=== PATIENT | female | born 1985 | race Two or more races ===

== ENCOUNTER 2022-09-18 10:56 | Inpatient (IN) | payer OTHER ==
[2022-09-18 12:26] LABS: BASO % 0.4 % (0-2.0); EOS % 1.2 % (0-4.5); HEMATOCRIT 36.5 % (32.4-45.2); LYMPH % 20.6 % (8-40); MCH 27.6 pg (25.7-33.7); MCHC 32.8 g/dl (32.0-36.0); MEAN CELL VOLUME 84.1 fl (80-96); MEAN PLT VOLUME 8.6 fl (7.5-11.1); MONO % 6.3 % (3.8-10.2); NEUT % 71.5 % (42.8-82.8); PLATELET COUNT 227 10^3/uL (134-434); RBC 4.34 M/mm3 (3.60-5.2); RDW 15.1 % (11.6-15.6); WHITE BLOOD COUNT 8.3 K/mm3 (4.0-10.0)
[2022-09-18 12:32] LABS: INR 0.97 (0.83-1.09); PROTHROMBIN TIME (PATIENT) 11.2 SEC (9.7-13.0)
[2022-09-18 12:35] LABS: ACTIVATED PTT 29.2 SECONDS (25.2-36.5)
[2022-09-18 13:13] LABS: CALCIUM 9.9 mg/dL (8.5-10.1)
[2022-09-18 13:14] LABS: ALBUMIN 2.5 g/dl (3.4-5.0); BLOOD UREA NITROGEN 11.9 mg/dL (7-18)
[2022-09-18 13:17] LABS: CREATININE 0.9 mg/dL (0.55-1.3)
[2022-09-18 13:18] LABS: BILIRUBIN,TOTAL 0.3 mg/dL (0.2-1); TOT PROT 6.5 g/dl (6.4-8.2)
[2022-09-19] MEDS ORDERED: CITRIC ACID/SODIUM CITRATE 30 ML UNIT-DOSE CUP PO ONE (06:45)
[2022-09-19] MEDS ORDERED: ELECTROLYTE-148 SOLN 500 ML IV ONE (06:45)
[2022-09-19 06:48] VITALS: BMI 30.3
[2022-09-19] MEDS ORDERED: ELECTROLYTE-148 SOLN 1,000 ML IV SCH (07:15)
[2022-09-19] MEDS ORDERED: ACETAMINOPHEN 325 MG TABLET (FP) PO PRN ×2 (08:00→09:49)
[2022-09-19] MEDS ORDERED: ONDANSETRON 4 MG/2 ML VIAL IVPUSH PRN (08:00)
[2022-09-19] MEDS ORDERED: morphine SULFATE/PF 1 MG/2 ML (2cc Syringe - QUVA) EP ONE (08:00)
[2022-09-19] MEDS ORDERED: IBUPROFEN 600 MG TABLET (FP) PO PRN (08:00)
[2022-09-19] MEDS ORDERED: morphine SULFATE (PF) 1 MG/2 ML SYRINGE ONE (08:10)
[2022-09-19] MEDS ORDERED: SODIUM CHLORIDE 0.9% P/F 10 ML VIAL IJ ONE (08:11)
[2022-09-19] MEDS ORDERED: ceFAZolin SODIUM 1 GM VIAL ONE (08:11)
[2022-09-19] MEDS ORDERED: OXYTOCIN 10 UNITS/ML VIAL ONE ×2 (08:52→09:27)
[2022-09-19] MEDS ORDERED: ONDANSETRON 4 MG/2 ML VIAL ONE (09:27)
[2022-09-19 09:47] LABS: CORD BASE EXCESS -4.1 mmol/L (0-2); CORD HCO3 22.3 mmHg (20-29); CORD PCO2 45.5 mmHg (30-78); CORD pH 7.308 (7.14-7.44)
[2022-09-19 09:49] LABS: CORD HCO3 24.7 mmHg (20-29); CORD PCO2 61.1 mmHg (30-78); CORD pH 7.224 (7.14-7.44)
[2022-09-19] MEDS ORDERED: METHYLERGONOVINE MALEATE 0.2 MG/1 ML AMP IM PRN (09:49)
[2022-09-19] MEDS ORDERED: ceFAZolin 2 GRAM PREMIX BAG IVPB SCH (10:00)
[2022-09-19] MEDS ORDERED: OXYTOCIN 20 UNITS in 0.9% NS 20 UNIT/1,000 ML INFUS.BAG IV ONE (11:06)
[2022-09-19] MEDS: OXYTOCIN 20 UNITS in 0.9% NS 20 UNIT/1,000 ML INFUS.BAG IV SCH ×2 (11:21→16:35)
[2022-09-19] MEDS: INSULIN SLIDING SCALE (NOVOLOG) 1 VIAL SQ SCH ×3 (12:17→22:18)
[2022-09-19] MEDS: IBUPROFEN 800 MG/8 ML IJ IVPB PRN (17:07)
[2022-09-19] MEDS: CEFAZOLIN SODIUM 2 GM in DEXTROSE 5%-WATER - 50 ML IVPB SCH ×2 (18:27→18:29)
[2022-09-19] MEDS ORDERED: oxyCODONE HCL 5 MG TABLET PO PRN ×2 (21:49)
[2022-09-20] MEDS: CEFAZOLIN SODIUM 2 GM in DEXTROSE 5%-WATER - 50 ML IVPB SCH (02:26)
[2022-09-20] MEDS: IBUPROFEN 600 MG TABLET (FP) PO PRN ×2 (02:26→13:51)
[2022-09-20] MEDS: IBUPROFEN 800 MG/8 ML IJ IVPB PRN (06:10)
[2022-09-20] MEDS: INSULIN SLIDING SCALE (NOVOLOG) 1 VIAL SQ SCH ×4 (06:21→21:38)
[2022-09-20 09:07] LABS: BASO % 0.3 % (0-2.0); EOS % 0.3 % (0-4.5); HEMATOCRIT 32.6 % (32.4-45.2); HEMOGLOBIN 10.6 GM/dL (10.7-15.3); LYMPH % 16.9 % (8-40); MCH 27.4 pg (25.7-33.7); MCHC 32.6 g/dl (32.0-36.0); MEAN CELL VOLUME 84.1 fl (80-96); MEAN PLT VOLUME 8.2 fl (7.5-11.1); MONO % 6.5 % (3.8-10.2); PLATELET COUNT 210 10^3/uL (134-434); RBC 3.87 M/mm3 (3.60-5.2); RDW 15.2 % (11.6-15.6); WHITE BLOOD COUNT 11.7 K/mm3 (4.0-10.0)
[2022-09-20 09:30] LABS: BLOOD UREA NITROGEN 10.7 mg/dL (7-18)
[2022-09-20 09:35] LABS: BILIRUBIN,TOTAL 0.3 mg/dL (0.2-1)
[2022-09-20 09:37] LABS: ALBUMIN 1.5 g/dl (3.4-5.0); CALCIUM 7.9 mg/dL (8.5-10.1); TOT PROT 4.2 g/dl (6.4-8.2)
[2022-09-20] MEDS ORDERED: BISACODYL 10 MG SUPP.RECT RC PRN (09:49)
[2022-09-20] MEDS: SIMETHICONE 80 MG TAB.CHEW (FP) PO PRN ×2 (10:04→13:51)
[2022-09-20] MEDS: ENOXAPARIN NA (PORCINE) 40 MG/0.4 ML DISP.SYRIN SQ SCH (10:04)
[2022-09-20] MEDS: LEVOTHYROXINE NA 150 MCG TABLET PO SCH (11:45)
[2022-09-20] MEDS: CEFAZOLIN SODIUM 2 GM VIAL IVPB SCH ×2 (15:58→21:40)
[2022-09-21] MEDS: CEFAZOLIN SODIUM 2 GM VIAL IVPB SCH ×2 (06:29→15:00)
[2022-09-21] MEDS: INSULIN SLIDING SCALE (NOVOLOG) 1 VIAL SQ SCH ×4 (06:35→21:22)
[2022-09-21] MEDS: LEVOTHYROXINE NA 150 MCG TABLET PO SCH (07:31)
[2022-09-21] MEDS: ENOXAPARIN NA (PORCINE) 40 MG/0.4 ML DISP.SYRIN SQ SCH (10:33)
[2022-09-21] MEDS: SIMETHICONE 80 MG TAB.CHEW (FP) PO PRN ×2 (10:38→17:26)
[2022-09-21] MEDS: IBUPROFEN 600 MG TABLET (FP) PO PRN (17:07)
[2022-09-21] MEDS: CEFAZOLIN SODIUM 2 GM in DEXTROSE 5%-WATER 100 ML IVPB SCH (17:16)
[2022-09-22] MEDS: CEFAZOLIN SODIUM 2 GM in DEXTROSE 5%-WATER 100 ML IVPB SCH ×3 (01:20→17:00)
[2022-09-22] MEDS: LEVOTHYROXINE NA 150 MCG TABLET PO SCH (06:28)
[2022-09-22] MEDS: SIMETHICONE 80 MG TAB.CHEW (FP) PO PRN (06:29)
[2022-09-22] MEDS: IBUPROFEN 600 MG TABLET (FP) PO PRN (06:29)
[2022-09-22] MEDS: INSULIN SLIDING SCALE (NOVOLOG) 1 VIAL SQ SCH ×4 (06:33→21:59)
[2022-09-22 08:11] LABS: BASO % 0.3 % (0-2.0); EOS % 2.6 % (0-4.5); HEMATOCRIT 30.5 % (32.4-45.2); HEMOGLOBIN 10.2 GM/dL (10.7-15.3); MCH 28.4 pg (25.7-33.7); MCHC 33.5 g/dl (32.0-36.0); MEAN CELL VOLUME 84.8 fl (80-96); MONO % 6.1 % (3.8-10.2); PLATELET COUNT 295 10^3/uL (134-434); RDW 14.9 % (11.6-15.6); WHITE BLOOD COUNT 10.1 K/mm3 (4.0-10.0)
[2022-09-22] MEDS: ENOXAPARIN NA (PORCINE) 40 MG/0.4 ML DISP.SYRIN SQ SCH (11:05)
[2022-09-22 21:59] VITALS: PULSE 76; TEMP 97.9
[2022-09-23] MEDS: LEVOTHYROXINE NA 150 MCG TABLET PO SCH (06:12)
[2022-09-23] MEDS: INSULIN SLIDING SCALE (NOVOLOG) 1 VIAL SQ SCH ×2 (06:15→11:09)
[2022-09-23] MEDS: ENOXAPARIN NA (PORCINE) 40 MG/0.4 ML DISP.SYRIN SQ SCH ×2 (08:40→11:03)
[2022-09-23 08:50] VITALS: BP 131/77; RESP 16
== END 2022-09-23 11:40 | disposition home or self-care (01) | DRG 786 ==
LOC: JPSTI 10:56 → JLDR 09-19 06:10 → J3W 09-19 12:20
PROVIDERS: ADMIT Obstetrics & Gynecology; ATTEND Obstetrics & Gynecology
PROC: 10D00Z1 Extraction of Products of Conception, Low, Open Approach (ICD-10-PCS; principal; 2022-09-19)
PROC: 0DNU0ZZ Release Omentum, Open Approach (ICD-10-PCS; 2022-09-19)
DX: O40.3XX0 Polyhydramnios, third trimester, not applicable or unspecified (principal); O24.02 Pre-existing type 1 diabetes mellitus, in childbirth; U07.1 COVID-19; O98.52 Other viral diseases complicating childbirth; O99.892 Other specified diseases and conditions complicating childbirth; N73.6 Female pelvic peritoneal adhesions (postinfective); O34.211 Maternal care for low transverse scar from previous cesarean delivery; Z79.4 Long term (current) use of insulin; Z87.59 Personal history of other complications of pregnancy, childbirth and the puerperium; Z3A.38 38 weeks gestation of pregnancy; Z37.0 Single live birth
CPT/HCPCS: 36415; 36600; 51600; 80053; 82803; 82962; 85025; 85610; 85730; 86780; 86850; 86900; 86901; 86922; 88304-TC; 88307-TC; C9803-CS; U0003; U0005